=== PATIENT | female | born 1980 ===

== ENCOUNTER 2017-02-19 17:12 | Emergency (ER) | payer OTHER ==
[2017-02-19 17:46] VITALS: TEMP 97.7; O2SAT 98
--- NOTE | 2017-02-19 17:53 | C.PDOC ---
History Of Present Illness 36 year old female presents to the emergency room for the evaluation of gradually developing right shoulder pain for the past week. Patient reports that the pain is localized and worse with movement of the right arm. Patient admits similar symptoms on the left shoulder a few years ago. Patient denies any known trauma/injury, neck pain, CP, SOB, dyspnea, diaphoresis, palpitation, cough, weakness, numbness, sensory or vascular deficits to Right arm. Ambulate to ED, appears in pain. Time Seen by Provider: 02/19/17 17:42 Chief Complaint (Nursing): Upper Extremity Problem/Injury History Per: Patient History/Exam Limitations: no limitations Onset/Duration Of Symptoms: Other (1 week) Current Symptoms Are (Timing): Still Present Quality: "Pain" Severity: Mild Exacerbating Factor(s): Movement Recent travel outside of the [place]: No Past Medical History Reviewed: Historical Data, Nursing Documentation, Vital Signs Vital Signs: Last Vital Signs Temp 97.7 F 02/19/17 17:44 Pulse 86 02/19/17 17:44 Resp 20 02/19/17 17:44 BP 160/80 H 02/19/17 17:44 Pulse Ox 98 02/19/17 17:57 Family History: States: No Known Family Hx - Social History Hx Alcohol Use: No Hx Substance Use: No - Immunization History Hx Tetanus Toxoid Vaccination: No Hx Influenza Vaccination: No Hx Pneumococcal Vaccination: No Review Of Systems Except As Marked, All Systems Reviewed And Found Negative. Constitutional: Negative for: Fever, Chills Musculoskeletal: Positive for: Shoulder Pain (Right shoulder pain) Neurological: Negative for: Weakness, Numbness Physical Exam - Physical Exam Appears: Well, Non-toxic Skin: Normal Color, Warm, Dry, No Rash Head: Atraumatic, Normacephalic Neck: Trachea Midline, No Midline Cervical Tenderness, No Paracervical Tenderness, No Step Off Deformity, Supple Cardiovascular: Rhythm Regular Respiratory: No Decreased Breath Sounds, No Accessory Muscle Use, No Stridor, No Wheezing Back: No CVA Tenderness, No Vertebral Tenderness, Muscle Spasm (Radiating from the right shoulder), No Paraspinal Tenderness Extremity: Normal ROM, Tenderness (Tenderness over superior aspect of the right shoulder, extending down to right upper back with some muscle spasms.), No Pedal Edema, No Deformity, No Swelling Neurological/Psych: Oriented x3, Normal Speech, Normal Cognition, Normal Motor, Normal Sensation, Normal Reflexes Gait: Steady ED Course And Treatment O2 Sat by Pulse Oximetry: 98 Pulse Ox Interpretation: Normal - Other Rad Right shoulder xray X-Ray: Interpreted by Me, Viewed By Me Interpretation: no acute fx of dislocation Progress Note: On re-eavl, pt is afebrile, hemodynamicalys table. NOn-toxic. PulsOEx 98% RA. ENT: No acute findings. neck: (-) midline tenderness. Lungs: CTA B/L, BS equal B/L. CVS: (+)S1S2, reg. RUE: exam c/w shoulder tendonitis. NO neurovascular deficits. xray review and appears normal. Sling, analgesics. Pt advised. ref. to f/u with PMD, Ortho in 2-3 days for re-eval. return if any new changes. Disposition Counseled Patient/Family Regarding: Studies Performed, Diagnosis, Need For Followup, Rx Given - Disposition Referrals: [facility] at [facility] [Outside] Ubaldo Mendes III, MD [Staff Provider] - Disposition: HOME/ ROUTINE Disposition Time: 18:10 Condition: STABLE Additional Instructions: Avoid Right arm lifting, or any physical activity for 3-4 days Take pain medication as prescribed Follow up with PMD, orthopedist in 2-3 days for re-evaluation. Return to ED if any worsening or new changes. Prescriptions: Ibuprofen [Motrin Tab] 600 mg PO Q6 #20 tab Methocarbamol [Robaxin] 500 mg PO TID #14 tab traMADol [Ultram] 50 mg PO TID #7 tab Instructions: Rotator Cuff Tendinitis (ED) Forms: Work Excuse Print Language: MAURITANIAN - Clinical Impression Clinical Impression: Shoulder tendonitis - Scribe Statement The provider has reviewed the documentation as recorded by the Kandiceibsherie Marinelli All medical record entries made by the Kandiceibe were at my direction and personally dictated by me. I have reviewed the chart and agree that the record accurately reflects my personal performance of the history, physical exam, medical decision making, and the department course for this patient. I have also personally directed, reviewed, and agree with the discharge instructions and disposition.
--- NOTE | 2017-02-19 18:15 | RAD ---
PROCEDURE: Radiographs of the Right Shoulder HISTORY: pain COMPARISON: No prior study available for comparison however correlation made with radiographs left shoulder 12/20/2015. FINDINGS: BONES: No evidence of acute displaced fracture nor dislocation. The osseous structures appear intact. JOINTS: Normal. Glenohumeral and acromioclavicular joints preserved. No osteoarthritis. SOFT TISSUES: No abnormal soft tissue calcifications OTHER FINDINGS: None. IMPRESSION: No acute displaced fracture nor dislocation. The
[2017-02-19 18:48] VITALS: BP 128/78; PULSE 85; RESP 18
== END 2017-02-19 18:48 | disposition home or self-care (01) ==
LOC: C.ER 17:12
DX: M75.91 Shoulder lesion, unspecified, right shoulder (principal)
CPT/HCPCS: 73030; 96372; 99284; J1885

== ENCOUNTER 2017-03-22 20:09 | Emergency (ER) | payer SELFPAY ==
[2017-03-22 20:32] VITALS: RESP 18; O2SAT 100
[2017-03-22 21:45] LABS: RBC URINE < 1 /hpf (0-3); URINE BILIRUBIN NEGATIVE (NEGATIVE); URINE BLOOD NEGATIVE (NEGATIVE); URINE COLOR Straw (YELLOW); URINE GLUCOSE (UA) NORMAL (Normal); URINE KETONE NEGATIVE (NEGATIVE); URINE LEUKOCYTE ESTERASE NEG Leu/uL (Negative); URINE PROTEIN NEGATIVE (NEGATIVE); URINE UROBILINOGEN NORMAL mg/dL (0.2-1.0); WBC URINE 1 /hpf (0-5)
--- NOTE | 2017-03-22 21:53 | C.PDOC ---
History Of Present Illness 36 y/o female presents to ED with c/o right sided back pain for 3 weeks. 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 Notes that pain worsens with movement. Denies trauma, chest pain, SOB, new weakness, new numbness, neck pain, headache, urinary or bowel incontinence, or other associated symptoms. Time Seen by Provider: 03/22/17 21:11 Chief Complaint (Nursing): Back Pain History Per: Patient History/Exam Limitations: no limitations Onset/Duration Of Symptoms: Days Current Symptoms Are (Timing): Still Present Quality Of Discomfort: "Pain" Previous Symptoms: None Associated Symptoms: denies: Incontinence, New Weakness, New Numbness Exacerbating Factor(s): Movement Recent travel outside of the [place]: No Past Medical History Reviewed: Historical Data, Nursing Documentation, Vital Signs Vital Signs: Last Vital Signs Temp 98 F 03/22/17 22:41 Pulse 100 H 03/22/17 22:41 Resp 18 03/22/17 22:41 BP 140/90 03/22/17 22:41 Pulse Ox 100 03/22/17 22:41 - Medical History PMH: No Chronic Diseases Family History: States: Unknown Family Hx - Social History Hx Alcohol Use: Yes Hx Substance Use: No - Immunization History Hx Tetanus Toxoid Vaccination: No Hx Influenza Vaccination: No Hx Pneumococcal Vaccination: No Review Of Systems Except As Marked, All Systems Reviewed And Found Negative. Constitutional: Negative for: Fever, Chills Cardiovascular: Negative for: Chest Pain Respiratory: Negative for: Cough, Shortness of Breath Gastrointestinal: Negative for: Nausea, Vomiting Musculoskeletal: Positive for: Shoulder Pain, Back Pain. Negative for: Neck Pain Skin: Negative for: Rash Neurological: Negative for: Weakness, Numbness, Headache Physical Exam - Physical Exam Appears: Non-toxic, No Acute Distress Skin: Normal Color, Warm, Dry Head: Atraumatic, Normacephalic Eye(s): bilateral: Normal Inspection, EOMI Nose: Normal Oral Mucosa: Moist Neck: Normal ROM, No Midline Cervical Tenderness, No Paracervical Tenderness, No Step Off Deformity, Supple Chest: Symmetrical, No Tenderness Cardiovascular: Rhythm Regular Respiratory: Normal Breath Sounds, No Rales, No Rhonchi, No Wheezing Gastrointestinal/Abdominal: Soft, No Tenderness Back: No Vertebral Tenderness, Other (tenderness to palpation of trapezius and right parathoracic, mild spasm) Extremity: Normal ROM, No Calf Tenderness, Capillary Refill (< 2 sec.), No Deformity, No Swelling Extremity: Bilateral: Atraumatic, Normal Color And Temperature Neurological/Psych: Oriented x3, Normal Speech, Normal Cognition, Normal Motor, Normal Sensation Gait: Steady ED Course And Treatment O2 Sat by Pulse Oximetry: 100 (RA) Pulse Ox Interpretation: Normal Progress Note: CxR and thoracic back x-rays ordered. Treated with Flexeril and Ultram. On re-evaluation, pt notes pain greatly improved. No SOB. No leg swelling. No chest pain. PERC rule O%. Insturcted RICE and outpt follow up with PM Din 1-2 days. Disposition - Disposition Referrals: [facility] at [facility] [Outside] Disposition: HOME/ ROUTINE Disposition Time: 22:26 Condition: STABLE Additional Instructions: Asa un seguimiento con vasquez mdico de cabecera en 1-2 pfeiffer. Regresar a Urgencias si los sntomas persisten o empeoran. 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 - Scribe Statement The provider has reviewed the documentation as recorded by the Kandiceibsherie Hernandez All medical record entries made by the Marlee were at my direction and personally dictated by me. I have reviewed the chart and agree that the record accurately reflects my personal performance of the history, physical exam, medical decision making, and the department course for this patient. I have also personally directed, reviewed, and agree with the discharge instructions and disposition.
[2017-03-22 22:43] VITALS: BP 140/90; PULSE 100; TEMP 98
--- NOTE | 2017-03-23 08:50 | RAD ---
HISTORY: pain COMPARISON: Chest x-ray performed 12/20/15 TECHNIQUE: Chest PA and lateral FINDINGS: LUNGS: No focal consolidation. Please note that chest x-ray has limited sensitivity for the detection of pulmonary masses. PLEURA: No significant pleural effusion identified. No definite pneumothorax . CARDIOVASCULAR: The cardiomediastinal silhouette appears within normal limits of size. OSSEOUS STRUCTURES: No acute osseous abnormality identified. VISUALIZED UPPER ABDOMEN: Unremarkable. OTHER FINDINGS: None. IMPRESSION: No focal consolidation, significant pleural effusion, or definite pneumothorax identified.
--- NOTE | 2017-03-23 12:06 | RAD ---
HISTORY: Pain COMPARISON: No prior. FINDINGS: BONES: There is mild dextrocurvature in the thoracic spine. Vertebral alignment is normal. Vertebral height is maintained. There is no acute fracture or bone destruction. DISC SPACES: The disc heights are preserved. SOFT TISSUES: The paraspinous soft tissues are normal. OTHER FINDINGS: None. IMPRESSION: No acute fracture or bone destruction.
== END 2017-03-22 22:43 | disposition home or self-care (01) ==
LOC: C.ER 20:09 → SUPCPDRO 20:09 → C.ER 22:43
DX: M54.6 Pain in thoracic spine (principal)

== ENCOUNTER 2017-07-09 10:13 | Emergency (ER) | payer OTHER, SELFPAY ==
[2017-07-09 10:24] VITALS: RESP 18; TEMP 98.2
[2017-07-09 11:14] LABS: RBC URINE 2 /hpf (0-3); URINE BACTERIA RARE (<OCC); URINE BILIRUBIN NEGATIVE (NEGATIVE); URINE BLOOD 1+ (NEGATIVE); URINE COLOR Yellow (YELLOW); URINE GLUCOSE (UA) NORMAL (Normal); URINE KETONE NEGATIVE (NEGATIVE); URINE LEUKOCYTE ESTERASE NEG Leu/uL (Negative); URINE PROTEIN NEGATIVE (NEGATIVE); URINE UROBILINOGEN NORMAL mg/dL (0.2-1.0); WBC URINE 1 /hpf (0-5)
--- NOTE | 2017-07-09 11:40 | C.PDOC ---
History Of Present Illness 36 year old female presents to the ED for evaluation of suprapubic abdominal pain, dysuria and increased urinary frequency which began around 1 day ago. Denies vaginal discharge. Patient reports previous history of UTI and notes her current symptoms feel similar to prior. She denies fever, chills, flank pain , nausea, vomiting. Time Seen by Provider: 07/09/17 11:04 Chief Complaint (Nursing): Female Genitourinary History Per: Patient History/Exam Limitations: no limitations Onset/Duration Of Symptoms: Hrs Current Symptoms Are (Timing): Still Present Quality Of Discomfort: "Pain" Associated Symptoms: Urinary Symptoms (dysuria, urinary frequency ). denies: Fever, Chills, Nausea, Vomiting, Other (flank pain ) Additional History Per: Patient Abnormal Vaginal Bleeding: No Past Medical History Reviewed: Historical Data, Nursing Documentation, Vital Signs Vital Signs: Last Vital Signs Temp 98.2 F 07/09/17 12:33 Pulse 75 07/09/17 12:33 Resp 18 07/09/17 12:33 BP 137/82 07/09/17 12:33 Pulse Ox 100 07/09/17 12:37 - Medical History PMH: No Chronic Diseases Surgical History: No Surg Hx Family History: States: Unknown Family Hx - Social History Hx Alcohol Use: Yes Hx Substance Use: No - Immunization History Hx Tetanus Toxoid Vaccination: No Hx Influenza Vaccination: No Hx Pneumococcal Vaccination: No Review Of Systems Constitutional: Negative for: Fever, Chills Respiratory: Negative for: Cough, Shortness of Breath, SOB with Excertion, Wheezing Gastrointestinal: Positive for: Abdominal Pain (suprapubic ). Negative for: Nausea, Vomiting Genitourinary: Positive for: Dysuria, Frequency. Negative for: Vaginal Discharge, Vaginal Bleeding Musculoskeletal: Negative for: Neck Pain Skin: Negative for: Rash Neurological: Negative for: Weakness, Numbness Physical Exam - Physical Exam Appears: Well, Non-toxic, No Acute Distress Skin: Normal Color, Warm, Dry Head: Atraumatic, Normacephalic Eye(s): bilateral: Normal Inspection, PERRL, EOMI Oral Mucosa: Moist Neck: Supple Chest: Symmetrical, No Deformity, No Tenderness Cardiovascular: Rhythm Regular Respiratory: Normal Breath Sounds, No Rales, No Rhonchi, No Wheezing Gastrointestinal/Abdominal: Soft, No Tenderness, No Guarding, No Rebound Back: Normal Inspection, No CVA Tenderness, No Vertebral Tenderness Extremity: Normal ROM, Capillary Refill (less than 2 seconds ) Neurological/Psych: Oriented x3, Normal Speech, Normal Cognition Gait: Steady ED Course And Treatment O2 Sat by Pulse Oximetry: 100 (on RA) Pulse Ox Interpretation: Normal - CT Scan/US CT A/P Other Rad Studies (CT/US): Interpreted By Me, Read By Radiologist, Radiology Report Reviewed CT/US Interpretation: PROCEDURE: CT Abdomen and Pelvis without Oral or IV contrast. HISTORY: dysuria, hematuria. COMPARISON: Pelvic ultrasound performed 10/06/16. TECHNIQUE: Contiguous axial images of the abdomen and pelvis. No oral or IV contrast administered. Coronal and Sagittal reformats generated and reviewed. Radiation dose: Total exam DLP = 284.23 mGy-cm. This CT exam was performed using one or more of the following dose reduction techniques: Automated exposure control, adjustment of the mA and/or kV according to patient size, and/or use of iterative reconstruction technique. FINDINGS: There is limited evaluation of the solid organs without the administration of IV contrast. LOWER THORAX: No visible consolidation, pleural effusion, or pneumothorax. LIVER: 4 mm calcification in the right hepatic lobe, likely granuloma. GALLBLADDER AND BILE DUCTS: Unremarkable unenhanced appearance. PANCREAS: Unremarkable unenhanced appearance. SPLEEN: Unremarkable unenhanced appearance. ADRENALS: 13 x 11 mm hypodense nodule involving the medial limb of the left adrenal gland, indeterminate. Unremarkable unenhanced appearance of the right adrenal gland. KIDNEYS AND URETERS: No hydronephrosis or obstructing renal calculus. BLADDER: The urinary bladder appears unremarkable. REPRODUCTIVE: Uterus is present. APPENDIX: The appendix appears within normal limits of caliber. No secondary signs of acute appendicitis. BOWEL: The stomach is nondistended. Lack of oral contrast limits evaluation for bowel pathology. The bowel loops appear within normal limits of caliber without evidence of intestinal obstruction. PERITONEUM: No significant free fluid. No definite free air. LYMPH NODES: No bulky lymphadenopathy identified. VASCULATURE: No aortic aneurysm. BONES: Vacuum disc phenomenon intervertebral disc space narrowing at L5-S1. OTHER FINDINGS: None. IMPRESSION: 13 x 11 mm hypodense nodule involving the medial limb of the left adrenal gland, indeterminate. Medical Decision Making Medical Decision Making: Impression: suprapubic pain, dysuria, and frequency Plan: * Urinalysis * CT A/P * Keflex PO * Pyridium PO * reassess and disposition Progress: UA ordered. Results show rare bacteria with some blood. Urine HCG is negative. Patient's symptoms are consistent with UTI. Will order CT A/P to rule out renal stones. CT A/P ordered and reviewed. Keflex PO and Pyridium PO administered. CT shows "There is limited evaluation of the solid organs without the administration of IV contrast. LOWER THORAX: No visible consolidation, pleural effusion, or pneumothorax. LIVER: 4 mm calcification in the right hepatic lobe, likely granuloma. GALLBLADDER AND BILE DUCTS: Unremarkable unenhanced appearance. PANCREAS: Unremarkable unenhanced appearance. SPLEEN: Unremarkable unenhanced appearance. ADRENALS: 13 x 11 mm hypodense nodule involving the medial limb of the left adrenal gland , indeterminate. Unremarkable unenhanced appearance of the right adrenal gland. KIDNEYS AND URETERS: No hydronephrosis or obstructing renal calculus. BLADDER: The urinary bladder appears unremarkable. REPRODUCTIVE: Uterus is present. APPENDIX: The appendix appears within normal limits of caliber. No secondary signs of acute appendicitis. BOWEL: The stomach is nondistended. Lack of oral contrast limits evaluation for bowel pathology. The bowel loops appear within normal limits of caliber without evidence of intestinal obstruction. PERITONEUM: No significant free fluid. No definite free air. LYMPH NODES: No bulky lymphadenopathy identified. VASCULATURE: No aortic aneurysm. BONES: Vacuum disc phenomenon intervertebral disc space narrowing at L5-S1. OTHER FINDINGS: None. IMPRESSION: 13 x 11 mm hypodense nodule involving the medial limb of the left adrenal gland , indeterminate." Symptoms are consistent with prior utis. Abdomen soft NT/ND on reevaluation. Well appearing in NAD. Will dc with antibiotics. Disposition - Disposition Referrals: [facility] at [facility] [Outside] Disposition: HOME/ ROUTINE Disposition Time: 12:33 Condition: GOOD Additional Instructions: Take full course of antibiotics. Return to ED if condition worsens. Follow-up with PMD within 2 days. Prescriptions: Cephalexin [cephalexin] 500 mg PO Q12 #14 cap Phenazopyridine [Pyridium] 100 mg PO TID PRN #20 tab PRN Reason: Bladder Spasm Instructions: Phenazopyridine (By mouth), Urinary Tract Infection in Women (ED) Forms: [employer] (Hebrew) Print Language: MALTESE - Clinical Impression Clinical Impression: UTI (urinary tract infection) - Scribe Statement The provider has reviewed the documentation as recorded by the Scribe (Esha Harrell) Provider Attestation: All medical record entries made by the Scribe were at my direction and personally dictated by me. I have reviewed the chart and agree that the record accurately reflects my personal performance of the history, physical exam, medical decision making, and the department course for this patient. I have also personally directed, reviewed, and agree with the discharge instructions and disposition.
--- NOTE | 2017-07-09 12:16 | CT ---
PROCEDURE: CT Abdomen and Pelvis without Oral or IV contrast. HISTORY: dysuria, hematuria COMPARISON: Pelvic ultrasound performed 10/06/16 TECHNIQUE: Contiguous axial images of the abdomen and pelvis. No oral or IV contrast administered. Coronal and Sagittal reformats generated and reviewed. Radiation dose: Total exam DLP = 284.23 mGy-cm. This CT exam was performed using one or more of the following dose reduction techniques: Automated exposure control, adjustment of the mA and/or kV according to patient size, and/or use of iterative reconstruction technique. FINDINGS: There is limited evaluation of the solid organs without the administration of IV contrast. LOWER THORAX: No visible consolidation, pleural effusion, or pneumothorax. LIVER: 4 mm calcification in the right hepatic lobe, likely granuloma. GALLBLADDER AND BILE DUCTS: Unremarkable unenhanced appearance. PANCREAS: Unremarkable unenhanced appearance. SPLEEN: Unremarkable unenhanced appearance. ADRENALS: 13 x 11 mm hypodense nodule involving the medial limb of the left adrenal gland, indeterminate. Unremarkable unenhanced appearance of the right adrenal gland. KIDNEYS AND URETERS: No hydronephrosis or obstructing renal calculus. BLADDER: The urinary bladder appears unremarkable. REPRODUCTIVE: Uterus is present. APPENDIX: The appendix appears within normal limits of caliber. No secondary signs of acute appendicitis. BOWEL: The stomach is nondistended. Lack of oral contrast limits evaluation for bowel pathology. The bowel loops appear within normal limits of caliber without evidence of intestinal obstruction. PERITONEUM: No significant free fluid. No definite free air. LYMPH NODES: No bulky lymphadenopathy identified. VASCULATURE: No aortic aneurysm. BONES: Vacuum disc phenomenon intervertebral disc space narrowing at L5-S1. OTHER FINDINGS: None. IMPRESSION: 13 x 11 mm hypodense nodule involving the medial limb of the left adrenal gland, indeterminate.
[2017-07-09 12:34] VITALS: BP 137/82; PULSE 75
[2017-07-09 12:36] VITALS: O2SAT 100
== END 2017-07-09 12:40 | disposition home or self-care (01) ==
LOC: C.ER 10:13
DX: N39.0 Urinary tract infection, site not specified (principal)

== ENCOUNTER 2017-09-02 12:38 | Emergency (ER) | payer OTHER ==
[2017-09-02 13:04] VITALS: TEMP 98.2
[2017-09-02 14:25] LABS: RBC URINE 1 /hpf (0-3); URINE BACTERIA OCC (<OCC); URINE BILIRUBIN NEGATIVE (NEGATIVE); URINE BLOOD NEGATIVE (NEGATIVE); URINE COLOR Yellow (YELLOW); URINE GLUCOSE (UA) NORMAL (Normal); URINE KETONE TRACE mg/dL (NEGATIVE); URINE LEUKOCYTE ESTERASE NEG Leu/uL (Negative); URINE PROTEIN NEGATIVE (NEGATIVE); URINE UROBILINOGEN NORMAL mg/dL (0.2-1.0); WBC URINE 4 /hpf (0-5)
--- NOTE | 2017-09-02 14:41 | C.PDOC ---
History Of Present Illness 37 year old female presents to ED with complaints of urinary frequency for 3 days associated with suprapubic pressure like pain. Denies fever, flank pain or bleeding. Time Seen by Provider: 09/02/17 13:15 Chief Complaint (Nursing): Female Genitourinary History Per: Patient History/Exam Limitations: no limitations Onset/Duration Of Symptoms: Days (3) Current Symptoms Are (Timing): Still Present Additional History Per: Patient Past Medical History Reviewed: Historical Data, Nursing Documentation, Vital Signs Vital Signs: Last Vital Signs Temp 98.2 F 09/02/17 13:03 Pulse 72 09/02/17 14:46 Resp 18 09/02/17 14:46 BP 119/69 09/02/17 14:46 Pulse Ox 99 09/02/17 18:35 - Medical History PMH: No Chronic Diseases Surgical History: No Surg Hx Family History: States: Unknown Family Hx - Social History Hx Alcohol Use: Yes Hx Substance Use: No - Immunization History Hx Tetanus Toxoid Vaccination: No Hx Influenza Vaccination: No Hx Pneumococcal Vaccination: No Review Of Systems Constitutional: Negative for: Fever Gastrointestinal: Positive for: Abdominal Pain (suprapubic ) Genitourinary: Positive for: Frequency. Negative for: Vaginal Bleeding Physical Exam - Physical Exam Appears: Non-toxic, No Acute Distress Skin: Normal Color, Warm, Dry Oral Mucosa: Moist Chest: Symmetrical, No Deformity, No Tenderness Cardiovascular: Rhythm Regular Respiratory: Normal Breath Sounds, No Rales, No Rhonchi, No Wheezing Pelvic: Vaginal Discharge (thin, white, non-odorous ), No Cervical Motion Tenderness, No Adnexal Tenderness Neurological/Psych: Normal Speech, Normal Cognition Gait: Steady ED Course And Treatment O2 Sat by Pulse Oximetry: 99 (on RA) Pulse Ox Interpretation: Normal Medical Decision Making Medical Decision Making: Patient with urinary complaints. UA ordered and reviewed and negative. Pelvic exam performed showing thin white non-odorous discharge, no CMT, no adnexal tenderness. Will treat for BV. Rx given patient discharged home. 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 - Scribe Statement The provider has reviewed the documentation as recorded by the Scribe (Esha Harrell) All medical record entries made by the Scribe were at my direction and personally dictated by me. I have reviewed the chart and agree that the record accurately reflects my personal performance of the history, physical exam, medical decision making, and the department course for this patient. I have also personally directed, reviewed, and agree with the discharge instructions and disposition.
[2017-09-02 14:47] VITALS: BP 119/69; PULSE 72; RESP 18
[2017-09-02 18:33] VITALS: O2SAT 99
== END 2017-09-02 14:55 | disposition home or self-care (01) ==
LOC: SUPCPDRO 12:38 → C.ER 12:38
DX: N76.0 Acute vaginitis (principal)

== ENCOUNTER 2017-09-26 08:59 | Emergency (ER) | payer OTHER ==
[2017-09-26 09:03] VITALS: TEMP 97.9
--- NOTE | 2017-09-26 09:41 | C.PDOC ---
History Of Present Illness 37 year old female presents to the ED for evaluation of vaginal pain for 1.5 weeks. Patient states symptoms are around bilateral groin area and "inside." Her LMP was last week, states she finished 3 days ago. Patient denies dysuria, polyuria. Admits to being sexually active with condom, last 1 month ago. Patient has clear discharge and denies itchiness, fever, nausea, vomiting. VAGINAL PAIN X 1.5 WEEK. PS FEELS B/L GROIN AREA AND "INSIDE". LMP LAST WEEK, FINISHED 3 DAYS AGO. NO DYSURIA, POLYURIA. +SEXUAL ACTIVE W CONDOM, LAST 1 MO AGO. CLEAR DC. NO ITCH. NO FEVER, NV. EXAM MILD DIST NONTOXIC ABD NEG NO EXT LESIONS, RASH. SPECULUM: NO DC, BLEEDING. BIMAN: +B/L ADNEXAL AREA TEND NO CMT REMAINDER NEG MDM PRIOR EVAL FOR SIM SX EARLIER THIS YEAR. PS FU W DR JACOBS "HE SAID I HAVE A BAD INFXN". Time Seen by Provider: 09/26/17 09:23 Chief Complaint (Nursing): Female Genitourinary History Per: Patient History/Exam Limitations: no limitations Onset/Duration Of Symptoms: Other (1.5 weeks ) Current Symptoms Are (Timing): Still Present Quality Of Discomfort: "Pain" Associated Symptoms: denies: Nausea, Vomiting, Urinary Symptoms Additional History Per: Patient Abnormal Vaginal Bleeding: No Past Medical History Reviewed: Historical Data, Nursing Documentation, Vital Signs Vital Signs: Last Vital Signs Temp 97.9 F 09/26/17 09:02 Pulse 76 09/26/17 09:02 Resp 18 09/26/17 09:02 BP 132/92 H 09/26/17 09:02 Pulse Ox 97 09/26/17 10:59 - Medical History PMH: No Chronic Diseases Surgical History: No Surg Hx Family History: States: Unknown Family Hx - Social History Hx Alcohol Use: Yes Hx Substance Use: No - Immunization History Hx Tetanus Toxoid Vaccination: No Hx Influenza Vaccination: No Hx Pneumococcal Vaccination: No Review Of Systems Constitutional: Negative for: Fever, Chills Gastrointestinal: Negative for: Nausea, Vomiting Genitourinary: Positive for: Vaginal Discharge (clear). Negative for: Dysuria, Other (polyuria ) Physical Exam - Physical Exam Appears: Non-toxic, Other (in mild distress) Skin: Normal Color, Warm, Dry, No Rash Neck: Supple Gastrointestinal/Abdominal: Soft, No Tenderness, No Guarding, No Rebound Pelvic: No Cervical Motion Tenderness, No Other (no external lesions or rash. Speculum: no discharge or bleeding. Biman: b/l adnexal tenderness ) Extremity: Normal ROM, Capillary Refill (less than 2 seconds ) Neurological/Psych: Oriented x3, Normal Speech, Normal Cognition Gait: Steady ED Course And Treatment - Laboratory Results Result Diagrams: 09/26/17 10:37 09/26/17 10:37 Urine POC: Negative O2 Sat by Pulse Oximetry: 97 (on RA) Pulse Ox Interpretation: Normal Progress Note: Bloodwork, Chlamydia/GC, UA, Pelvic US and Transvaginal US ordered and reviewed. Progress - Re-Evaluation Re-evaluation Note: 09/26/17 14:18 APPEARS COMFORTABLE NAD. US, CT NO ACUTE FINDINGS. ADVISED NEED TO FU PMD/OBGYN. - Data Reviewed Data Reviewed: Lab, Diagnostic imaging, Old records Disposition Counseled Patient/Family Regarding: Studies Performed, Diagnosis, Need For Followup, Rx Given - Disposition Referrals: [facility] [Outside] [facility] [Outside] Disposition: HOME/ ROUTINE Disposition Time: 14:18 Condition: IMPROVED Prescriptions: Acetaminophen [Tylenol Extra Strength] 2 tab PO Q6 #30 tablet Ibuprofen [Motrin] 600 mg PO Q6 #30 tab Instructions: Pelvic Pain (ED) Forms: [facility] (Austrian), Work/School/Gym Excuse Print Language: BELIZEAN - Clinical Impression Clinical Impression: Pelvic pain - Scribe Statement The provider has reviewed the documentation as recorded by the Scribe (Esha Harrell) Provider Attestation: All medical record entries made by the Scribe were at my direction and personally dictated by me. I have reviewed the chart and agree that the record accurately reflects my personal performance of the history, physical exam, medical decision making, and the department course for this patient. I have also personally directed, reviewed, and agree with the discharge instructions and disposition.
[2017-09-26 10:20] LABS: RBC URINE 6 /hpf (0-3); URINE BILIRUBIN NEGATIVE (NEGATIVE); URINE BLOOD 1+ (NEGATIVE); URINE COLOR Yellow (YELLOW); URINE GLUCOSE (UA) NORMAL (Normal); URINE KETONE NEGATIVE (NEGATIVE); URINE LEUKOCYTE ESTERASE NEG Leu/uL (Negative); URINE PROTEIN NEGATIVE (NEGATIVE); URINE UROBILINOGEN NORMAL mg/dL (0.2-1.0); WBC URINE 1 /hpf (0-5)
[2017-09-26 10:56] LABS: BASO # 0.1 K/uL (0.0-0.2); BASO % 0.7 % (0.0-2.0); EOS # 0.1 K/uL (0.0-0.7); EOS % 1.7 % (0.0-4.0); HEMATOCRIT 38.6 % (34.0-47.0); LYMPH # 3.4 K/uL (1.0-4.3); MEAN CELL VOLUME 87.7 fL (81.0-99.0); MEAN CORPUSCULAR HEMOGLOBIN 30.5 pg (27.0-31.0); MEAN CORPUSCULAR HGB CONC 34.8 g/dL (33.0-37.0); MEAN PLATELET VOLUME 11.3 fL (7.2-11.7); MONO # 0.5 K/uL (0.0-0.8); NRBC % 0.1 % (0.0-2.0); RED CELL DISTRIBUTION WIDTH 13.8 % (11.5-14.5); WHITE BLOOD COUNT 8.4 K/uL (4.8-10.8)
[2017-09-26 11:01] LABS: CALCIUM 8.7 mg/dl (8.6-10.4); GFR AFRICAN-AMERICAN > 60
[2017-09-26 11:27] LABS: BLOOD UREA NITROGEN 16 mg/dL (7-17); CARBON DIOXIDE 26 mmol/L (22-30); CHLORIDE 100 mmol/L (98-107); GLUCOSE,RANDOM 99 mg/dL (65-105); POTASSIUM 5.2 mmol/L (3.6-5.2); SODIUM 131 mmol/L (132-148)
--- NOTE | 2017-09-26 12:01 | US ---
HISTORY: PELVIC PAIN COMPARISON: Pelvic ultrasound performed 10/06/16 TECHNIQUE: Real-time transabdominal pelvic ultrasound was performed. In addition a transvaginal pelvic ultrasound was necessary to better depict pelvic anatomy. FINDINGS: UTERUS: Measures 7.0 x 3.4 x 4.0 cm. Anteverted. ENDOMETRIUM: Measures 3 mm in diameter. CERVIX: Nabothian cysts. RIGHT OVARY: Measures 3.1 x 2.4 x 2.8 cm. Blood flow is demonstrated. LEFT OVARY: Measures 3.2 x 1.7 x 2.3 cm. Blood flow is demonstrated. FREE FLUID: No significant free fluid noted. OTHER FINDINGS: None. IMPRESSION: No acute findings identified.
[2017-09-26] MEDS ORDERED: Iodixanol 320 MG/ML 100 ML BOTTLE IV ONE (12:40)
--- NOTE | 2017-09-26 13:27 | CT ---
PROCEDURE: CT Abdomen and Pelvis with contrast HISTORY: PELVIC PAIN COMPARISON: CT scan of the abdomen pelvis dated 07/09/2017. TECHNIQUE: Contrast dose: 100 mL Visipaque 320 Radiation dose: Total exam DLP = 239.2 mGy-cm. This CT exam was performed using one or more of the following dose reduction techniques: Automated exposure control, adjustment of the mA and/or kV according to patient size, and/or use of iterative reconstruction technique. FINDINGS: LOWER THORAX: Unremarkable. LIVER: Punctate right hepatic lobe calcification (series 3, image 46). Otherwise, unremarkable. No gross lesion or ductal dilatation. GALLBLADDER AND BILE DUCTS: Unremarkable. PANCREAS: Unremarkable. No gross lesion or ductal dilatation. SPLEEN: Unremarkable. ADRENALS: Stable appearance of indeterminate 1.8 x 1.1 centimeters left adrenal nodule (series 3, image 27). No mass. KIDNEYS AND URETERS: Unremarkable. No hydronephrosis. No solid mass. VASCULATURE: Unremarkable. No aortic aneurysm. BOWEL: Unremarkable. No obstruction. No gross mural thickening. Colonic diverticulosis without evidence for acute diverticulitis APPENDIX: Normal appendix. PERITONEUM: Unremarkable. No free fluid. No free air. LYMPH NODES: Unremarkable. No enlarged lymph nodes. BLADDER: Unremarkable. REPRODUCTIVE: Unremarkable. BONES: Vacuum disc phenomenon at L5-S1 redemonstrated. OTHER FINDINGS: None. IMPRESSION: No acute abdominal pelvic pathology. Stable indeterminate 1.8 centimeter left adrenal nodule. Colonic diverticulosis without evidence for acute diverticulitis.
[2017-09-26 14:31] VITALS: BP 132/84; PULSE 70; RESP 16; O2SAT 98
== END 2017-09-26 14:29 | disposition home or self-care (01) ==
LOC: C.ER 08:59
DX: R10.2 Pelvic and perineal pain (principal)
CPT/HCPCS: 74177; 76830; 76856; 80048; 81001; 85025; 87491; 87591; 99284; Q9967

== ENCOUNTER 2018-06-05 15:16 | Emergency (ER) | payer OTHER ==
[2018-06-05 15:17] VITALS: BMI 22.4
[2018-06-05 15:26] VITALS: RESP 18
[2018-06-05] MEDS ORDERED: Sodium Chloride 0.9% 1,000 ML IV ONE (15:55)
--- NOTE | 2018-06-05 16:10 | C.PDOC ---
History Of Present Illness 37 y/o female presents to ED with c/o abdominal pain associated with nausea, vomiting and diarrhea for 4 days. Patient has not taken pain medication and denies recent travel, fever, chills or any other complaints at this time. Time Seen by Provider: 06/05/18 15:40 Chief Complaint (Nursing): Abdominal Pain History Per: Patient History/Exam Limitations: no limitations Onset/Duration Of Symptoms: Days Current Symptoms Are (Timing): Still Present Location Of Pain/Discomfort: Epigastric Past Medical History Reviewed: Historical Data, Nursing Documentation, Vital Signs Vital Signs: Last Vital Signs Temp 98.7 F 06/05/18 15:23 Pulse 77 06/05/18 15:23 Resp 18 06/05/18 15:23 BP 145/90 06/05/18 15:23 Pulse Ox 100 06/05/18 16:10 - Medical History PMH: No Chronic Diseases Surgical History: No Surg Hx Family History: States: No Known Family Hx - Social History Hx Alcohol Use: Yes Hx Substance Use: No - Immunization History Hx Tetanus Toxoid Vaccination: No Hx Influenza Vaccination: No Hx Pneumococcal Vaccination: No Review Of Systems Except As Marked, All Systems Reviewed And Found Negative. Gastrointestinal: Positive for: Nausea, Vomiting, Abdominal Pain, Diarrhea Physical Exam - Physical Exam Appears: Non-toxic, No Acute Distress Skin: Warm, Dry, No Rash Head: Atraumatic, Normacephalic Eye(s): bilateral: Normal Inspection Oral Mucosa: Moist Neck: Supple Cardiovascular: Rhythm Regular Respiratory: Normal Breath Sounds, No Rales, No Rhonchi, No Wheezing Gastrointestinal/Abdominal: Soft, Tenderness (epigastric), No Guarding, No Rebound Back: No CVA Tenderness Extremity: Normal ROM, Capillary Refill (<2 seconds) Neurological/Psych: Oriented x3, Normal Speech, Normal Cognition ED Course And Treatment - Laboratory Results Result Diagrams: 06/05/18 16:08 06/05/18 16:08 O2 Sat by Pulse Oximetry: 100 (RA) Pulse Ox Interpretation: Normal Medical Decision Making Medical Decision Making: Assessment: Abdominal pain 1654 - patient states improvement. Will discharge home to follow up with pmd within 2 days Disposition - Disposition Disposition: HOME/ ROUTINE Disposition Time: 16:54 Condition: IMPROVED Additional Instructions: follow up with your doctor or medical clinic within 2 days call to make an appointment take medications as needed return to ER if symptoms worsens or progress Prescriptions: Famotidine [Pepcid] 20 mg PO BID #20 tab Ondansetron ODT [Zofran ODT] 4 mg PO TID PRN #12 odt PRN Reason: Nausea/Vomiting Instructions: Nausea and Vomiting, Adult (DC) Forms: Gen Discharge Inst Hebrew, its learning (Hebrew) Print Language: KAZAKH - Clinical Impression Clinical Impression: Vomiting, Diarrhea, Abdominal pain - Scribe Statement The provider has reviewed the documentation as recorded by the Marlee Martinez All medical record entries made by the Marlee were at my direction and personally dictated by me. I have reviewed the chart and agree that the record accurately reflects my personal performance of the history, physical exam, medical decision making, and the department course for this patient. I have also personally directed, reviewed, and agree with the discharge instructions and disposition.
[2018-06-05 16:15] LABS: BASO % 0.4 % (0.0-2.0); EOS # 0.1 K/uL (0.0-0.7); EOS % 0.9 % (0.0-4.0); HEMOGLOBIN 14.3 g/dL (11.0-16.0); LYMPH # 3.8 K/uL (1.0-4.3); LYMPH % 47.1 % (20.0-40.0); MEAN CELL VOLUME 85.3 fL (81.0-99.0); MEAN CORPUSCULAR HEMOGLOBIN 29.5 pg (27.0-31.0); MEAN CORPUSCULAR HGB CONC 34.5 g/dL (33.0-37.0); MEAN PLATELET VOLUME 9.8 fL (7.2-11.7); MONO # 0.4 K/uL (0.0-0.8); MONO % 5.4 % (0.0-10.0); NEUT # 3.7 K/uL (1.8-7.0); NEUT % 46.2 % (50.0-75.0); NRBC % 0.1 % (0.0-2.0); RBC 4.84 Mil/uL (3.80-5.20); WHITE BLOOD COUNT 8.1 K/uL (4.8-10.8)
[2018-06-05] MEDS ORDERED: Sodium Chloride 0.9% 1,000 ML ONE (16:17)
[2018-06-05 16:18] LABS: SQUAMOUS EPITHIAL 4 /hpf (0-5); URINE BACTERIA OCC (<OCC); URINE BILIRUBIN NEGATIVE (NEGATIVE); URINE BLOOD NEGATIVE (NEGATIVE); URINE CLARITY Clear (Clear); URINE COLOR Straw (YELLOW); URINE GLUCOSE (UA) NORMAL (Normal); URINE LEUKOCYTE ESTERASE NEG Leu/uL (Negative); URINE PROTEIN NEGATIVE (NEGATIVE); URINE UROBILINOGEN NORMAL mg/dL (0.2-1.0)
--- NOTE | 2018-06-05 16:29 | RAD ---
Date of service: 06/05/2018 PROCEDURE: Radiographs of the chest and abdomen (obstructive series) HISTORY: abd pain COMPARISON: CT scan of the abdomen pelvis dated 09/26/2017; chest radiograph dated 03/22/2017. TECHNIQUE: AP radiograph of the chest, with upright and supine radiographs of the abdomen. FINDINGS: CHEST: Lungs: Clear. Cardiovascular: Normal size heart. No pulmonary vascular congestion. Pleura: No pleural fluid. No pneumothorax. Other findings: None. ABDOMEN AND PELVIS: Bowel: Unremarkable bowel gas pattern. No evidence of mechanical obstruction. Free air: None. Bones: Unremarkable. Other findings: None. IMPRESSION: Unremarkable radiographs of chest and abdomen. No evidence of mechanical bowel obstruction.
[2018-06-05 16:34] LABS: ALB/GLOB RATIO 1.3 (1.0-2.1); ALBUMIN 4.8 g/dL (3.5-5.0); ALT/SGPT 28 U/L (9-52); AST/SGOT 22 U/L (14-36); BLOOD UREA NITROGEN 8 mg/dL (7-17); CALCIUM 9.9 mg/dl (8.6-10.4); GFR NON-AFRICAN AMERICAN > 60; LIPASE 103 U/L (23-300)
[2018-06-05 17:19] VITALS: BP 136/79; PULSE 68; TEMP 98; O2SAT 98
== END 2018-06-05 17:19 | disposition home or self-care (01) ==
LOC: C.ER 15:16
DX: R19.7 Diarrhea, unspecified (principal); R11.2 Nausea with vomiting, unspecified; R10.9 Unspecified abdominal pain
CPT/HCPCS: 74022; 80053; 81001; 83690; 85025; 96361; 96374; 96375; 99285; J1885; J2405; J7030